=== PATIENT | female | born 1995 | race Caucasian/White ===

== ENCOUNTER 2017-11-15 10:48 | Emergency (ER) | payer MEDICAID, OTHER ==
[2017-11-15 10:48] VITALS: BMI 26.5
[2017-11-15 11:01] VITALS: RESP 16; TEMP 98.4; O2SAT 100
--- NOTE | 2017-11-15 11:32 | C.PDOC ---
History Of Present Illness 22 y/o female presents to the ER complaining of back pain for 2 weeks that worsens with standing. The patient reports being and therefore states she did not take any medication for pain due to being unaware of what was/wasn' t safe to take. She denies experiencing any abdominal pain, urinary symptoms, discharge, fever, numbness, vaginal bleeding. vaginal discharge. weakness or tingling. Time Seen by Provider: 11/15/17 11:24 Chief Complaint (Nursing): Back Pain History Per: Patient History/Exam Limitations: no limitations Onset/Duration Of Symptoms: Days Current Symptoms Are (Timing): Still Present Quality Of Discomfort: "Pain" Associated Symptoms: None Exacerbating Factor(s): Standing Recent travel outside of the [place]: No Past Medical History Reviewed: Historical Data, Nursing Documentation, Vital Signs Vital Signs: Last Vital Signs Temp 98.4 F 11/15/17 10:58 Pulse 75 11/15/17 11:36 Resp 16 11/15/17 10:58 BP 98/57 L 11/15/17 11:36 Pulse Ox 100 11/15/17 22:18 Surgical History: - [facility] Procedures EXTRACTION OF POC, LOW CERVICAL, OPEN APPROACH (03/26/15) Family History: States: Unknown Family Hx - Social History Hx Tobacco Use: No Hx Alcohol Use: No Hx Substance Use: No - Immunization History Hx Tetanus Toxoid Vaccination: No Hx Influenza Vaccination: No Hx Pneumococcal Vaccination: No Review Of Systems Constitutional: Negative for: Fever Gastrointestinal: Negative for: Abdominal Pain Genitourinary: Negative for: Dysuria, Frequency, Incontinence, Vaginal Discharge , Vaginal Bleeding Musculoskeletal: Positive for: Back Pain Neurological: Negative for: Weakness, Numbness, Other (tingling) Physical Exam - Physical Exam Appears: No Acute Distress Skin: No Rash Head: Atraumatic, Normacephalic Eye(s): bilateral: PERRL, EOMI Oral Mucosa: Moist Cardiovascular: Rhythm Irregular, No Murmur Respiratory: No Rales, No Rhonchi, No Wheezing, Other (clear to auscultation bilaterally) Back: No CVA Tenderness, Paraspinal Tenderness (bilateral lumbar), No Other ( midline tenderness) Extremity: No Pedal Edema, No Calf Tenderness Pulses: Left Dorsalis Pedis: Normal, Right Dorsalis Pedis: Normal Neurological/Psych: Oriented x3, Normal Speech, Normal Cognition, Normal Motor, Normal Sensation, Other (Alert, No gross focal deficit) Gait: Steady ED Course And Treatment O2 Sat by Pulse Oximetry: 100 (RA) Pulse Ox Interpretation: Normal Medical Decision Making Medical Decision Making: pt with low back pain. worse with standing x 2 weeks. pt 8 weeks preg, took no meds for pain due to . given tylenol. 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 Es seguro en el embarazo Pruebe compresas fras o tibias en el lucie dolorida. Intenta evitar levantar cosas pesadas. Jeanne un seguimiento con el Dr. Young. Regrese a la mae de emergencias para cualquier sntoma peor, dolor abdominal, sangrado vaginal o cualquier otra preocupacin. Please take Tylenol for pain as prescribed. It is safe in . Try cold or warm compresses to painful area. Try to avoid heavy lifting. Follow up with Dr Young. Return to ER for any worse symptms, abdominal pain, vaginal bleeding or any other concerns. 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 - Scribe Statement The provider has reviewed the documentation as recorded by the Scribe (Gloria Du) All medical record entries made by the Scribe were at my direction and personally dictated by me. I have reviewed the chart and agree that the record accurately reflects my personal performance of the history, physical exam, medical decision making, and the department course for this patient. I have also personally directed, reviewed, and agree with the discharge instructions and disposition.
[2017-11-15 11:38] VITALS: BP 98/57; PULSE 75
== END 2017-11-15 11:44 | disposition home or self-care (01) ==
LOC: C.ER 10:48
DX: M54.5 Low back pain (principal)

== ENCOUNTER 2017-12-11 20:06 | Emergency (ER) | payer MEDICAID, OTHER ==
[2017-12-11 20:07] VITALS: BMI 26.5
[2017-12-11 20:25] VITALS: BP 103/73; PULSE 77; RESP 18; TEMP 98.1; O2SAT 99
--- NOTE | 2017-12-11 20:36 | C.PDOC ---
History Of Present Illness Patient c/o foreign body sensation on the back of her tongue x 2 weeks. Patient sts she was looking with the mirror and found some growth there. Patient is 12 weeks . Time Seen by Provider: 12/11/17 20:28 Chief Complaint (Nursing): ENT Problem History Per: Patient Quality (Mouth/Throat): Other (FB sensation) Past Medical History Reviewed: Historical Data, Nursing Documentation, Vital Signs Vital Signs: Last Vital Signs Temp 98.1 F 12/11/17 20:23 Pulse 77 12/11/17 20:23 Resp 18 12/11/17 20:23 BP 103/73 12/11/17 20:23 Pulse Ox 99 12/11/17 20:35 - Medical History PMH: No Chronic Diseases Surgical History: - [facility] Procedures EXTRACTION OF POC, LOW CERVICAL, OPEN APPROACH (03/26/15) Family History: States: Unknown Family Hx - Social History Hx Tobacco Use: No Hx Alcohol Use: No Hx Substance Use: No - Immunization History Hx Tetanus Toxoid Vaccination: No Hx Influenza Vaccination: No Hx Pneumococcal Vaccination: No Review Of Systems Except As Marked, All Systems Reviewed And Found Negative. Physical Exam - Physical Exam Appears: Well, Non-toxic, No Acute Distress Skin: Normal Color, No Rash Head: Atraumatic, Normacephalic Eye(s): bilateral: Normal Inspection Ear(s): Bilateral: Normal Nose: Normal, No Discharge Oral Mucosa: Moist Tongue: Normal Appearing, No Swelling, No Lesions, Other (growth noticed in the back of tongue, no bleeding, no discharge, no erythema. ) Throat: No Erythema, No Exudate, No Drooling, Other (patent airway, uvula is midline) Neck: Normal ROM, Supple Neurological/Psych: Oriented x3, Normal Speech, Normal Cognition ED Course And Treatment O2 Sat by Pulse Oximetry: 99 Progress Note: Patient was referred to ENT specialist. Disposition - Disposition Referrals: Aubrey Young MD [Primary Care Provider] - Tam Marks MD [Staff Provider] - Disposition: HOME/ ROUTINE Disposition Time: 20:34 Condition: STABLE Additional Instructions: Follow up with ENT specialist within 1-2 days. Return to ED if feel worse. Forms: [employer] (Austrian) Print Language: YI - Clinical Impression Clinical Impression: Foreign body sensation in throat
== END 2017-12-11 20:40 | disposition home or self-care (01) ==
LOC: C.ER 20:06 → SUPCPDRO 20:06 → C.ER 20:40
DX: R09.89 Other specified symptoms and signs involving the circulatory and respiratory systems (principal)

== ENCOUNTER 2018-06-14 06:27 | Inpatient (IN) | payer OTHER ==
[2018-06-14 07:29] VITALS: BMI 25.4
[2018-06-14] MEDS ORDERED: Lactated Ringer's 1,000 ML IV ONE (07:30)
[2018-06-14] MEDS ORDERED: Lactated Ringer's 1,000 ML IV SCH (07:30)
[2018-06-14] MEDS ORDERED: cefOXitin IV 2 gm in Dextrose 2 GM/50 ML BAG IVPB ONE ×2 (07:34→08:07)
[2018-06-14] MEDS ORDERED: Sodium Citrate/Citric Acid 15 ml Sol PO ONE (07:45)
[2018-06-14 07:47] LABS: BASO % 0.2 % (0.0-2.0); EOS # 0.1 K/uL (0.0-0.7); EOS % 1.3 % (0.0-4.0); HEMOGLOBIN 11.5 g/dL (11.0-16.0); LYMPH # 1.6 K/uL (1.0-4.3); LYMPH % 19.6 % (20.0-40.0); MEAN CORPUSCULAR HEMOGLOBIN 30.5 pg (27.0-31.0); MEAN CORPUSCULAR HGB CONC 32.4 g/dL (33.0-37.0); MEAN PLATELET VOLUME 10.5 fL (7.2-11.7); MONO # 0.7 K/uL (0.0-0.8); MONO % 8.2 % (0.0-10.0); NEUT # 5.7 K/uL (1.8-7.0); NEUT % 70.7 % (50.0-75.0); NRBC % 0.1 % (0.0-2.0); RBC 3.77 Mil/uL (3.80-5.20); RED CELL DISTRIBUTION WIDTH 13.8 % (11.5-14.5); WHITE BLOOD COUNT 8.1 K/uL (4.8-10.8)
[2018-06-14 07:51] LABS: MEAN CELL VOLUME 94.1 fL (81.0-99.0)
[2018-06-14] MEDS ORDERED: Oxytocin 20 units in LR 2,000 ML IV ONE (08:06)
[2018-06-14] MEDS ORDERED: Sodium Citrate/Citric Acid 15 ml Sol ONE (08:07)
[2018-06-14 08:13] LABS: ALB/GLOB RATIO 1.2 (1.0-2.1); ALBUMIN 3.5 g/dL (3.5-5.0); ALT/SGPT 10 U/L (9-52); AST/SGOT 18 U/L (14-36); BLOOD UREA NITROGEN 17 mg/dL (7-17); CALCIUM 8.6 mg/dl (8.6-10.4); GFR NON-AFRICAN AMERICAN > 60
[2018-06-14 08:28] LABS: SQUAMOUS EPITHIAL 3 /hpf (0-5); URINE BACTERIA RARE (<OCC); URINE BILIRUBIN NEGATIVE (NEGATIVE); URINE BLOOD NEGATIVE (NEGATIVE); URINE CLARITY Hazy (Clear); URINE COLOR Yellow (YELLOW); URINE GLUCOSE (UA) NORMAL (Normal); URINE LEUKOCYTE ESTERASE 1+ Leu/uL (Negative); URINE PROTEIN 1+ mg/dL (NEGATIVE)
--- NOTE | 2018-06-14 08:30 | OBADHP ---
Datetime: 06/14/2018 07:38 Admit Comment, IP Provider: Patient is a 22 y.o. , LMP unsure, LUIS CARLOS 06/22/18, EGA 38w 6d by s peewee 12/25/17 at 14w 3d, previous C/S x 1, for elective repeat C.S (+) AFM; denies LOF, VB, Ctx care: [facility]; noted for RPR(+) - not treated. 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 Denies any other STI, abnormal Pap PMH: denies PSH: C/S NKDA Meds: PNV - QD Soc Hx: denies tobacco, illicit drug or EtOH use. Lives with her son. FOB involved - no cohabitati on Fam Hx: Mother alive 47. Father alive 45. MGM - breast CA survivor P.E.: as above. WD in NAD> Awake, alert, oriented to time, person and place. Pleasanat and coopera tive Accompanied by FOB Assessment: 22 y.o. P1, 38w 6d, previous C/S x 1 for elective repeat. 10/2017 RPR titre 1:2, TPA-AB S negative. Category 1 tracing. R/C discussed; no questions offered. Consents signed, witnessed, reji ed, and placed in chart. Patient last ate 2330 hours. Plan: 1) Admit 2) NPO 3) Admission labs 4) Continuous EFM 5) Higgins 6) Mefoxin document control associate to O.R. 7) Notify peds 8) Notify anesthesia 9) Patietn document control associate to O.R. Pelvic Type - PN: Adequate Extremities - PN: Normal Abdomen - PN: Normal Back - PN: Normal Breast - PN: Not Done Lungs - PN: Normal Heart - PN: Normal Thyroid - PN: Not Done Neurologic - PN: Normal HEENT - PN: Normal General - PN: Normal Presentation-Admit: Vertex FHR - Baseline A Provider: 145 Contraction Comments Provider: 3 minutes Comments, ACOG Physical Exam: Abdomen: Gravid. soft. Non tender. Fundal height 39cm All other systems reviewed and are negative Gestation - Est Wks by US: 38w 6d IP Hx Assessment: The History has been Reviewed and is Current IP Chief Complaint: Scheduled Section NICHD Variability Prov Fetus A: Moderate 6-25bpm NICHD Accel Fetus A IP Provider: [id number] FHR Category Provider Fetus A: Category I Dilatation, Provider: 2 Effacement, Provider: 30 Station, Provider: -3 Genitourinary Exam: Normal DTRs - PN: Not Done EGA AdmitDate IP: 38.6 IP Adm Impression: Term, intrauterine IP Admit Plan: Admit to unit; Initiate Section protocol
[2018-06-14] MEDS ORDERED: Morphine 1 mg/ml preservative-free Inj(Duramorph) ONE (08:36)
[2018-06-14 09:00] LABS: BARBITURATES, UR NEGATIVE (NEGATIVE); BENZODIAZEPINES, UR NEGATIVE (NEGATIVE); OPIATES, UR NEGATIVE (NEGATIVE); PHENCYCLIDINE, UR NEGATIVE (NEGATIVE)
--- NOTE | 2018-06-14 12:27 | OBDS ---
DELIVERY PERSONNEL Delivery Doctor: Jeyson Carrillo MD Scrub Nurse: Susan Pang Film Waxer: Bella Andrade RN Anesthesiologist: Jeannine Anguiano MD Resident: Aga Man MATERNAL INFORMATION Delivery Anesthesia: Spinal Medications in Delivery: interceed, pitocin 20 units in 1000 mls of LR Estimated Blood Loss (ml): 600 Maternal Complications: None RN Comments: uneventful delivery of 38.6 weeks IUP via repeat schedule c/s to a viable baby girl wit h apgars 9-9 Provider Comments: Uneventful repeat LTCS with delivery of live female infant, LIZ position. Grossly normal placenta; 3 vessel cord. Routine closure Hemostasis assured. Patient tolerated procedure well EBL 600 mL U.O. 200 mL IVFs 1,000 mL LABOR SUMMARY EDC: 06/22/2018 00:00 No. Babies in Womb: 1 Attempted: No Labor Anesthesia: Intrathecal LABOR INFORMATION Reason for Induction: Not Applicable Group B Beta Strep: Negative Steroids Given: None Reason Steroids Not Administered: Not Applicable MEMBRANES Membranes Rupture Method: Artificial Rupture of Membranes: 06/14/2018 09:09 Length of Rupture (hrs): 0.00 Amniotic Fluid Color: Clear Amniotic Fluid Amount: Moderate Amniotic Fluid Odor: Normal STAGES OF LABOR Stage 3 hrs: 0 Stage 3 min: 1 CSECTION DELIVERY Primary Indication: Repeat Elective Secondary Indication: Repeat Elective CSection Urgency: N/A CSection Incidence: Repeat Labor: N/A Elective: Elective BABY A INFORMATION Infant Delivery Date/Time: 06/14/2018 09:09 Method of Delivery: Born in Route : No : N/A Forceps: N/A Vacuum Extraction: N/A Shoulder Dystocia : No SHOULDER DYSTOCIA BABY A Infant Delivery Date/Time: 06/14/2018 09:09 PRESENTATION/POSITION BABY A Presentation: Cephalic Cephalic Presentation: Vertex Vertex Position: Left Occipital Anterior Breech Presentation: N/A PLACENTA INFORMATION BABY A Placenta Delivery Time : 06/14/2018 09:10 Placenta Method of Delivery: Manual Removal Placenta Status: Delivered SCORES BABY A Heart Rate 1 min: >100 bpm Resp Effort 1 min: Good Cry Reflex Irritability 1 min: Cough or Sneeze or Pulls Away Muscle Tone 1 min: Active Motion Color 1 min: Body [place], Extremities Blue Resuscitation Effort 1 min: N/A SCORE 1 MIN: 9 Heart Rate 5 min: >100 bpm Resp Effort 5 min: Good Cry Reflex Irritability 5 min: Cough or Sneeze or Pulls Away Muscle Tone 5 min: Active Motion Color 5 min: Body [place], Extremities Blue Resuscitation Effort 5 min: N/A SCORE 5 MIN: 9 INFANT INFORMATION BABY A Gestational Age at Delivery: 38.6 Gestational Status: Term Outcome : Liveborn Condition : Stable Sex: Female IDENTIFICATION/MEDS BABY A ID Band Number: [id number] ID Band Location: Left Leg; Left Arm Sensor Applied: Yes Sensor Number: [id number] Sensor Location : Cord Clamp WEIGHT/LENGTH BABY A Birthweight (gms): 2975 Weight (lb): 6 Weight (oz): 9 Length Inches: 19.75 Infant Length cms: 50.2 CORD INFORMATION BABY A No. Cord Vessels: 3 Nuchal Cord : N/A Nuchal Cord Other: n/a True Knot: n/a Cord pH Baby Arterial: n/a Infant Cord pH Baby Venous: n/a Cord Blood Taken: Yes Banking/Donate Info: n/a Suction: Mouth; Nose ASSESSMENT BABY A Infant Complications: None Physical Findings at Delivery: Within Normal Limits Respirations: Appears Normal Sampler Tester/ALS Called : No Infant Care By: dr Blank/EMMY Lewis Transferred To: Nursery
[2018-06-14] MEDS ORDERED: Oxycodone/Acetaminophen 5/325 mg Tab PO PRN (12:58)
[2018-06-14] MEDS: Simethicone 80 mg Chewtab PO SCH ×3 (14:26→22:25)
--- NOTE | 2018-06-14 15:14 | PCM.SURG1 ---
Surgeon's Initial Post Op Note - Surgeon's Notes Surgeon: Mai Carrillo MD Catalyst Operator Chief: Saulo Lane MD 2nd Ass't: Paco Man. MS-3 Type of Anesthesia: Spinal Anesthesia Administered By: Rafa Hansen MD Pre-Operative Diagnosis: 38 weeks 6 days, Previous section, Anemia Operative Findings: Live female infant, weight 6 lb 9 oz, LIZ position, 's 9/9. Normal uterus; normal ovaries and fallopian tubes, bilaterally. Post-Operative Diagnosis: Same Operation Performed: Repeat LTCS Specimen/Specimens Removed: Placenta Estimated Blood Loss: EBL {In ML}: 600 (U.O. 200 mL. IVFs 2,000 ml LR; 1st 1L with 40 units pitocin) Blood Products Given: N/A Drains Used: No Drains Post-Op Condition: Good Date of Surgery/Procedure: 06/14/18 Time of Surgery/Procedure: 09:30
[2018-06-14] MEDS: Oxycodone/Acetaminophen 5/325 mg Tab PO PRN (16:36)
[2018-06-14 16:57] LABS: RAPID PLASMA REAGIN REACTIVE (NONREACTIVE)
[2018-06-14 17:41] LABS: RAPID PLASMA REAGIN REACTIVE (NONREACTIVE)
[2018-06-15 08:17] LABS: HEMOGLOBIN 10.6 g/dL (11.0-16.0); MEAN CELL VOLUME 96.1 fL (81.0-99.0); MEAN CORPUSCULAR HEMOGLOBIN 31.3 pg (27.0-31.0); MEAN CORPUSCULAR HGB CONC 32.6 g/dL (33.0-37.0); MEAN PLATELET VOLUME 9.7 fL (7.2-11.7); RBC 3.39 Mil/uL (3.80-5.20); WHITE BLOOD COUNT 8.8 K/uL (4.8-10.8)
[2018-06-15] MEDS: Simethicone 80 mg Chewtab PO SCH ×4 (09:36→22:16)
[2018-06-15] MEDS: Prenatal Multivit/Folic Acid/Iron Tab PO SCH (09:36)
[2018-06-15] MEDS: Oxycodone/Acetaminophen 5/325 mg Tab PO PRN (17:38)
--- NOTE | 2018-06-15 19:44 | OBPPN ---
Datetime: 06/15/2018 14:00 PP Pain Prov: Within normal limits PP Nausea Prov: Denies PP Flatus Prov: Yes PP BM Prov: Yes PP Breasts Prov: Not Done PP Heart Prov: Normal PP Lungs Prov: Normal PP Abdomen/Uterus Prov: Normal PP Lochia Prov: Normal PP Vulva/Perineum Prov: Normal PP CVA Tenderness Prov: Normal PP Extremities Prov: Normal PP C/S Incision Prov: Normal PP Progress Prov: Normal PP Comments Phys Exam Prov: Fundus firm, below umbilicus and non-tender Incision clean, dry and intact PP Impression Prov: Normal progression PP Plan Prov: Continue present management PP Progress Note Prov: Pt seen and examined POD # 1 S/P Repeat C/S without complications PP H_H 10.6/32.6 + RPR on admission with titer 1:2 and FTA ordered but a send out test Pt states that she had the same result on her first PNC visit at the Clinic and she was referred t o Dr. Juan Antonio Ceballos who had more blood test done but she never returned to his office for f/up appoi ntment Dr. Ceballos consulted and message left in his voicemail Not Ambulating on hallways and states that feels her abdomen rambling. Encourage to increase po water intake and to ambulate on hallways Diet advanced and Hep lock IV Will adjust her pain medications for schedule instead of prn so able to move better Advance care IP PP Procedures: None Vital Signs Provider PP: Reviewed
[2018-06-15] MEDS ORDERED: Oxycodone/Acetaminophen 5/325 mg Tab PO SCH (19:45)
[2018-06-16] MEDS: Oxycodone/Acetaminophen 5/325 mg Tab PO SCH ×2 (04:29→20:01)
--- NOTE | 2018-06-16 09:06 | OBHP ---
Datetime: 06/14/2018 07:38 IP Adm Impression: Term, intrauterine IP Admit Plan: Admit to unit; Initiate Section protocol Admit Comment, IP Provider: Patient is a 22 y.o. , LMP unsure, LUIS CARLOS 06/22/18, EGA 38w 6d by s peewee 12/25/17 at 14w 3d, previous C/S x 1, for elective repeat C.S (+) AFM; denies LOF, VB, Ctx care: [facility]-; noted for RPR(+), TPA negative - not treated. 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 Denies any other STI, abnormal Pap PMH: denies PSH: C/S NKDA Meds: PNV - QD Soc Hx: denies tobacco, illicit drug or EtOH use. Lives with her son. FOB involved - no cohabitati on Fam Hx: Mother alive 47. Father alive 45. MGM - breast CA survivor P.E.: as above. WD in NAD> Awake, alert, oriented to time, person and place. Pleasant and cooperat heidi Accompanied by FOB Assessment: 22 y.o. P1, 38w 6d, previous C/S x 1 for elective repeat. 10/2017 RPR titre 1:2, TPA-AB S negative. Category 1 tracing. R/C discussed; no questions offered. Consents signed, witnessed, reji ed, and placed in chart. Patient last ate 2330 hours. Plan: 1) Admit 2) NPO 3) Admission labs 4) Continuous EFM 5) Higgins 6) Mefoxin information broker to O.R. 7) Notify peds 8) Notify anesthesia 9) Patietn information broker to O.R. Pelvic Type - PN: Adequate Extremities - PN: Normal Abdomen - PN: Normal Back - PN: Normal Breast - PN: Not Done Lungs - PN: Normal Heart - PN: Normal Thyroid - PN: Not Done Neurologic - PN: Normal HEENT - PN: Normal General - PN: Normal Presentation-Admit: Vertex FHR - Baseline A Provider: 145 Contraction Comments Provider: 3 minutes Comments, ACOG Physical Exam: Abdomen: Gravid. soft. Non tender. Fundal height 39cm All other systems reviewed and are negative Gestation - Est Wks by US: 38w 6d IP Hx Assessment: The History has been Reviewed and is Current EGA AdmitDate IP: 38.6 IP Indication for Induction: Not Applicable IP Chief Complaint: Scheduled Section NICHD Variability Prov Fetus A: Moderate 6-25bpm NICHD Accel Fetus A IP Provider: 15X15 FHR Category Provider Fetus A: Category I Dilatation, Provider: 2 Effacement, Provider: 30 Station, Provider: -3 Genitourinary Exam: Normal DTRs - PN: Not Done
[2018-06-16] MEDS: Prenatal Multivit/Folic Acid/Iron Tab PO SCH (09:07)
[2018-06-16] MEDS: Simethicone 80 mg Chewtab PO SCH ×4 (09:07→22:52)
--- NOTE | 2018-06-16 09:14 | OBPPN ---
Datetime: 06/16/2018 08:50 PP Pain Prov: Within normal limits PP Nausea Prov: Denies PP Flatus Prov: Yes PP BM Prov: No PP Breasts Prov: Abnormal PP Heart Prov: Normal PP Lungs Prov: Normal PP Abdomen/Uterus Prov: Normal PP Lochia Prov: Normal PP Vulva/Perineum Prov: Not Done PP CVA Tenderness Prov: Normal PP Extremities Prov: Normal PP C/S Incision Prov: Normal PP Progress Prov: Normal PP Comments Phys Exam Prov: Breast: left nipple sore and red Lungs: soft crackle right base; all other lung reilly are clear Abdomen: (+) ABS. Non distended. Soft. Fundus firm, mobile, minimal/ appropriately tender, 2 FB be low umbilicus. PP Impression Prov: Normal progression PP Plan Prov: Continue present management PP Progress Note Prov: Patient received in room 460 at approximately 0815 hours, coming out of bathr oom. Ambulating and voiding without difficulty. Denies headaches, lightheadedness, dizziness, nausea, vomiting. Reports abdominal pain is relieved with pain meds, pain scale 3/10 to 4/10. Concerned abou t incision. Desires to breastfeed - left nipple is sore. P.E.: as above. Thin, in NAD. Awake, alert, oriented to time, person and place. Pleasant and coope rative. FOB present, supportive and attentive. Also, serves as caddy packer - H/H trend: 11.5/35.4 -> 10.6/32.6. Rh(+) Assessment: POD#2, 22 y.o. P2, S/P elective repeat LTCS. Afebrile, vital signs stable. Returning G I and functions. Wound hematoma - stable. Mild post operative anemia - asymptomatic and hemodynami sapphire stable. RPR 1:2; FTA pending. Patient instructed on use of incentive spirometer. Encouraged to keep wound clean and dry. Patient may shower. Encouraged ot ambulate. Patient is clilncially stable. Plan: 1) Consult with Infectious Disease blood donor recruiter via amion 2) consult F/U 3) Encourage ambulation 4) Encourage incentive spirometer use 5) F/U FTA 6) Anticipate discharge home 06/17/18 Vital Signs Provider PP: Reviewed; Within Normal Limits
--- NOTE | 2018-06-16 09:27 | OBPPN ---
Datetime: 06/16/2018 09:23 PP Progress Note Prov: Addendum: Dr. Ceballos, Infectious Diseases responded: if FTA-ABS is negative, no need to treat. If it is positive, treat accordingly.
[2018-06-16 16:05] VITALS: O2SAT 98
--- NOTE | 2018-06-16 16:38 | CP.PCM.CON ---
History of Present Illness - History of Present Illness History of Present Illness: REFERRED FOR ID EVAL + RPR 1:2 POST FTA REPORTEDLY NEG PREPARTUM Review of Systems - Review of Systems All systems: reviewed and no additional remarkable complaints except Past Patient History - Infectious Disease Hx of Infectious Diseases: None - Past Social History Smoking Status: Never Smoked - PSYCHIATRIC Hx Substance Use: No - SURGICAL HISTORY Hx Surgeries: Yes Hx Section: Yes (x1) - ANESTHESIA Hx Anesthesia: Yes Meds Allergies/Adverse Reactions: Allergies Allergy/AdvReac Type Severity Reaction Status Date / Time No Known Allergies Allergy Verified 12/11/17 20:20 - Medications Medications: Current Medications Docusate Sodium (Colace) 100 mg PO BID [facility] Last Admin: 06/16/18 09:07 Dose: 100 mg Ibuprofen (Motrin Tab) 600 mg PO Q6H [facility] Last Admin: 06/16/18 09:30 Dose: 600 mg Oxycodone/Acetaminophen (Percocet 5/325 Mg Tab) 2 tab PO Q4H PRN PRN Reason: Pain, severe (8-10) Stop: 06/17/18 12:59 Last Admin: 06/15/18 17:38 Dose: 2 tab Oxycodone/Acetaminophen (Percocet 5/325 Mg Tab) 1 tab PO Q6H [facility] Stop: 06/19/18 01:31 Last Admin: 06/16/18 04:29 Dose: Not Given Multivit/Folic Acid/Iron () 1 tab PO DAILY [facility] Last Admin: 06/16/18 09:07 Dose: 1 tab Sennosides (Senokot Tab) 17.2 mg PO HS [facility] Last Admin: 06/15/18 22:16 Dose: 17.2 mg Simethicone (Mylicon Chew Tab) 80 mg PO QID [facility] Last Admin: 06/16/18 13:41 Dose: 80 mg Physical Exam - Constitutional Appears: Well - Head Exam Head Exam: ATRAUMATIC, NORMAL INSPECTION, NORMOCEPHALIC - Eye Exam Eye Exam: EOMI, Normal appearance, PERRL Pupil Exam: NORMAL ACCOMODATION, PERRL - ENT Exam ENT Exam: Mucous Membranes Moist, Normal Exam - Neck Exam Neck exam: Positive for: Normal Inspection - Respiratory Exam Respiratory Exam: Clear to Auscultation Bilateral, NORMAL BREATHING PATTERN - Cardiovascular Exam Cardiovascular Exam: REGULAR RHYTHM - GI/Abdominal Exam GI & Abdominal Exam: Normal Bowel Sounds, Soft. absent: Tenderness - Rectal Exam Rectal Exam: Deferred - Exam Exam: NORMAL INSPECTION - Extremities Exam Extremities exam: Positive for: normal inspection - Back Exam Back exam: NORMAL INSPECTION - Neurological Exam Neurological exam: Alert, CN II-XII Intact, Normal Gait, Oriented x3, Reflexes Normal - Psychiatric Exam Psychiatric exam: Normal Affect, Normal Mood - Skin Skin Exam: Dry, Intact, Normal Color, Warm Results - Vital Signs Recent Vital Signs: Last Vital Signs Temp 97.1 F L 06/16/18 16:00 Pulse 91 H 06/16/18 16:00 Resp 18 06/16/18 16:00 BP 101/71 06/16/18 16:00 Pulse Ox 98 06/16/18 16:00 - Labs Result Diagrams: 06/15/18 08:12 06/14/18 07:41 Assessment & Plan (1) Positive serology for syphilis Status: Acute Priority: High (2) Status: Acute - Assessment and Plan (Free Text) Assessment: likely false + RPR will need folllow up'no rx for now await FTA ABS
[2018-06-17] MEDS: Oxycodone/Acetaminophen 5/325 mg Tab PO SCH ×2 (01:25→09:50)
[2018-06-17] MEDS: Simethicone 80 mg Chewtab PO SCH (09:50)
[2018-06-17] MEDS: Prenatal Multivit/Folic Acid/Iron Tab PO SCH (09:51)
[2018-06-17 19:13] VITALS: BP 115/65; PULSE 88; RESP 18; TEMP 97.8
== END 2018-06-17 15:00 | disposition home or self-care (01) | DRG 370 ==
LOC: C.4D 06:27 → C.4M 18:15
PROVIDERS: ADMIT Obstetrics & Gynecology; ATTEND Obstetrics & Gynecology
PROC: 10D00Z1 Extraction of Products of Conception, Low, Open Approach (ICD-10-PCS; principal; 2018-06-14)
DX: O34.211 Maternal care for low transverse scar from previous cesarean delivery (principal); O99.02 Anemia complicating childbirth; Z3A.38 38 weeks gestation of pregnancy; Z37.0 Single live birth

== ENCOUNTER 2018-06-24 09:44 | Emergency (ER) | payer OTHER ==
[2018-06-24 09:51] VITALS: BP 114/80; PULSE 88; TEMP 98.9; O2SAT 98; BMI 24.6
--- NOTE | 2018-06-24 10:31 | C.PDOC ---
History Of Present Illness 22 y/o female, s/p on 06/14/18, presents to the ER for evaluation of C- Section incision line " opened and started to bleed since today morning". pt admits, john removed 3 days ago. Pt denies fever, chills, increase abdominal pain, nausea, vomiting, UTI sx. At present time, pt is comfortable, not in any apparent distress. Time Seen by Provider: 06/24/18 10:19 Chief Complaint (Nursing): Wound Check History Per: Patient History/Exam Limitations: no limitations Onset/Duration Of Symptoms: Hrs Current Symptoms Are (Timing): Still Present Severity: Moderate Past Medical History Reviewed: Historical Data, Nursing Documentation, Vital Signs Vital Signs: Last Vital Signs Temp 98.9 F 06/24/18 10:13 Pulse 88 06/24/18 10:13 Resp 17 06/24/18 10:13 BP 114/80 06/24/18 10:13 Pulse Ox 98 06/24/18 10:13 - Medical History PMH: Denies: Depression, Diabetes, HTN Surgical History: - [facility] Procedures EXTRACTION OF POC, LOW CERVICAL, OPEN APPROACH (06/14/18) Family History: States: No Known Family Hx - Social History Hx Tobacco Use: No Hx Alcohol Use: No Hx Substance Use: No - Immunization History Hx Tetanus Toxoid Vaccination: No Hx Influenza Vaccination: No Hx Pneumococcal Vaccination: No Review Of Systems Except As Marked, All Systems Reviewed And Found Negative. Constitutional: Negative for: Fever, Chills Gastrointestinal: Positive for: Other ( incision line bleeding). Negative for: Nausea, Vomiting, Abdominal Pain Physical Exam - Physical Exam Appears: Well, Non-toxic, No Acute Distress Skin: Normal Color, Warm, Dry Eye(s): bilateral: PERRL Neck: Supple Cardiovascular: Rhythm Regular Respiratory: No Decreased Breath Sounds, No Accessory Muscle Use, No Stridor, No Wheezing Gastrointestinal/Abdominal: Soft, Tenderness (diffuse suprapubic along incision), No Distention, No Guarding, No Rebound, Other ((+) small opening Left corner of incision with bloody discharge. Above and below insicion line trzace ecchymoses. Otehrwise, soft to palpation, no induration) Back: No CVA Tenderness Extremity: Normal ROM, No Deformity, No Swelling ED Course And Treatment O2 Sat by Pulse Oximetry: 98 (RA) Pulse Ox Interpretation: Normal - CT Scan/US Abdominal US Other Rad Studies (CT/US): Read By Radiologist, Radiology Report Reviewed CT/US Interpretation: Accession No. : [id number]. Patient Name / ID : FAINA ZARAGOZA / [id number]. Exam Date : 06/24/2018 11:17:18 ( Approved ). Study Comment : Sex / Age : F / 22Y. Creator : Silvana Ferrera MD. Dictator : Silvana Ferrera MD. Gravel Screener : Key Cutter : Silvana Ferrera MD. Approver2 : Report Date : 06/24/2018 12:30:14. My Comment : . Abdomen limited ultrasound. Indication: suprapubic hematoma s/p C- section. Comparison: None available. Findings: Limited submitted images in the region of interest at the level of scar, there is evidence of a large heterogeneous fluid collection measuring approximately 6.9 x 1.9 cm. Impression: Limited submitted images in the region of interest at the level of scar, there is evidence of a large heterogeneous fluid collection measuring approximately 6.9 x 1.9 cm. Correlate clinically. Progress Note: AT 10:30 AM consult called ith , OB-on-call. AT 12:10, pt was seen in ED by , hematoma was drained and packed. As per , F/U in 2 days for wound check. Request Rx: Augmentin, Ibuprofen. On re-eval, pt is afebrile, hemodynamicalys table. NOn-toxic. Abd: benign, (-) guaridng, (-) rebound. back: (-) CVA tenderness. Pt advised on course of ds. Advised to F/u with [facility] in 2 days for wound check or return to Ed. Pt understand, stable for discharge now. Disposition Counseled Patient/Family Regarding: Studies Performed, Diagnosis, Need For Followup, Rx Given - [facility] Disposition: HOME/ ROUTINE Disposition Time: 12:50 Condition: STABLE Additional Instructions: Ice, wound compression dressing LIght duty, avoid heavy lifting, etc Follow up with [facility] In 2 days for wound check/packing removal as need If unable to reach out to [facility], return to ED for wound check. 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 - Scribe Statement The provider has reviewed the documentation as recorded by the Lo Ramsay Provider Attestation All medical record entries made by the Chiquitaibe were at my direction and personally dictated by me. I have reviewed the chart and agree that the record accurately reflects my personal performance of the history, physical exam, medical decision making, and the department course for this patient. I have also personally directed, reviewed, and agree with the discharge instructions and disposition.
--- NOTE | 2018-06-24 12:33 | US ---
Abdomen limited ultrasound Indication: suprapubic hematoma s/p Comparison: None available Findings: Limited submitted images in the region of interest at the level of scar, there is evidence of a large heterogeneous fluid collection measuring approximately 6.9 x 1.9 cm. Impression: Limited submitted images in the region of interest at the level of scar, there is evidence of a large heterogeneous fluid collection measuring approximately 6.9 x 1.9 cm. Correlate clinically.
--- NOTE | 2018-06-24 13:55 | CP.PCM.CON ---
<Tremaine Hahn - Last Filed: 06/24/18 14:35> History of Present Illness - History of Present Illness History of Present Illness: Gynecology Consult note Patient is a 22 y/o female , s/p repeat LTCS on 06/14/18, who presents to the ED with complaints of bleeding and opening at the line at the left lateral edge since yesterday morning. Patient's john removed approximately 3- 4 days ago. Currently, patient denies any symptoms of fever, chills, nausea, vomiting, abdominal distention, urinary symptoms or skin color changes. Patient does admits to mild discomfort. Review of Systems - Constitutional Constitutional: absent: Chills, Fever, Headache, Night Sweats - Cardiovascular Cardiovascular: absent: Chest Pain, Palpitations - Gastrointestinal Gastrointestinal: absent: Abdominal Pain, Constipation, Diarrhea, Nausea, Vomiting - Genitourinary Genitourinary: absent: Difficulty Urinating, Urinary Frequency, Urinary Hesitance Past Patient History - Infectious Disease Hx of Infectious Diseases: None - Past Social History Smoking Status: Never Smoked - CARDIAC Hx Hypertension: No - PSYCHIATRIC Hx Depression: No Hx Substance Use: No - SURGICAL HISTORY Hx Surgeries: Yes Hx Section: Yes (X2) - ANESTHESIA Hx Anesthesia: Yes Hx Anesthesia Reactions: No Hx Malignant Hyperthermia: No Meds Home Medications: Home Medication List Medication Instructions Recorded Confirmed Type Amoxicillin/Clavulanate [Augmentin 1 tab PO BID #14 tab 06/24/18 Rx 875 MG-125 MG] Allergies/Adverse Reactions: Allergies Allergy/AdvReac Type Severity Reaction Status Date / Time No Known Allergies Allergy Verified 06/24/18 10:16 Physical Exam - Constitutional Appears: No Acute Distress - Head Exam Head Exam: ATRAUMATIC, NORMAL INSPECTION - Eye Exam Eye Exam: EOMI, Normal appearance - ENT Exam ENT Exam: Mucous Membranes Moist - GI/Abdominal Exam GI & Abdominal Exam: Soft. absent: Distended, Firm, Guarding Additional comments: Mild hematoma at the incision site Coagulated blood expressed out Small opening of the incision at the left lateral edge - Extremities Exam Extremities exam: Positive for: normal inspection. Negative for: calf tenderne ss, pedal edema - Neurological Exam Neurological exam: Alert, Oriented x3 - Psychiatric Exam Psychiatric exam: Normal Affect, Normal Mood - Skin Skin Exam: Normal Color Results - Vital Signs Recent Vital Signs: Last Vital Signs Temp 98.9 F 06/24/18 10:13 Pulse 88 06/24/18 10:13 Resp 17 06/24/18 10:13 BP 114/80 06/24/18 10:13 Pulse Ox 98 06/24/18 13:29 Assessment & Plan (1) S/P Assessment and Plan: Patient is a 22 y/o female , s/p repeat LTCS on 06/14/18, who presents to the ED with complaints of bleeding and opening at the line at the left lateral edge since yesterday morning. Abdomen US (06/24/18): Abdomen limited ultrasound. Indication: suprapubic hematoma s/p . Comparison: None available. Findings: Limited submitted images in the region of interest at the level of scar, there is evidence of a large heterogeneous fluid collection measuring approximately 6.9 x 1.9 cm. Impression: Limited submitted images in the region of interest at the level of scar, there is evidence of a large heterogeneous fluid collection measuring approximately 6.9 x 1.9 cm. Correlate clinically. 1. Coagulated blood expressed out 2. Wound cleaned with hydrogen peroxide 3. Iodoform packing at the left lateral edge opening of the incision 4. Recommendation for keflex for 10 days and motrin Q6H prn for pain control All plans and management discussed with Dr. Mederos Status: Acute <Cassie Mederos - Last Filed: 06/24/18 18:24> Results - Vital Signs Recent Vital Signs: Last Vital Signs Temp 98.9 F 06/24/18 13:50 Pulse 88 06/24/18 13:50 Resp 18 06/24/18 13:50 BP 114/80 06/24/18 13:50 Pulse Ox 98 06/24/18 13:50 Assessment & Plan - Assessment and Plan (Free Text) Assessment: A/P POD # 10 S/P Section D/C home on POD # 3 in S&S condition Incisional Hematoma visible and confirmed by US Mild Erythema through the entire incision S/P bleeding from Left end of the incision and about Cleansed with Hydrogen Peroxide Incision probed with a Q-tip and Fascia intact throughout About 20 mls of clotted, dark brown blood was expressed until no more came out Again cleaned with H2O2 Incision packed with Iodoform packing Covered with a vaginal pad and instructed to f/up with her doctor in 2-3 more days D/C home with Rx for Motrin and Keflex as requested from ER attending Advised to return if heavy bleeding, increase pain, fevers, greenish discharge etc Pt and her both verbalized understanding. - Date & Time Date: 06/24/18 Time: 18:20
[2018-06-24 14:21] VITALS: RESP 18
== END 2018-06-24 14:51 | disposition home or self-care (01) ==
LOC: C.ER 09:44
DX: L76.32 Postprocedural hematoma of skin and subcutaneous tissue following other procedure (principal); Y83.8 Other surgical procedures as the cause of abnormal reaction of the patient, or of later complication, without mention of misadventure at the time of the procedure

== ENCOUNTER 2018-06-26 07:17 | Emergency (ER) | payer OTHER ==
[2018-06-26 07:17] VITALS: BMI 24.6
[2018-06-26 07:27] VITALS: O2SAT 100
--- NOTE | 2018-06-26 08:20 | C.PDOC ---
History Of Present Illness 53 y/o female presents to the ER for wound infection which developed 2 days ago after patient had on 06/14/18. Patient was evaluated for same complaint in [facility] 2 days ago. At the time, packing was applied to the area. Patient denies having fever and chills. Time Seen by Provider: 06/26/18 07:34 Chief Complaint (Nursing): Wound Check History Per: Patient History/Exam Limitations: no limitations Onset/Duration Of Symptoms: Days Ago Current Symptoms Are (Timing): Still Present Severity: Moderate Past Medical History Reviewed: Historical Data, Nursing Documentation, Vital Signs Vital Signs: Last Vital Signs Temp 98.2 F 06/26/18 07:26 Pulse 70 06/26/18 07:26 Resp 18 06/26/18 07:26 BP 121/83 06/26/18 07:26 Pulse Ox 100 06/26/18 07:26 - Medical History PMH: Denies: Depression, Diabetes, HTN Surgical History: - [facility] Procedures EXTRACTION OF POC, LOW CERVICAL, OPEN APPROACH (06/14/18) Family History: States: No Known Family Hx - Social History Hx Tobacco Use: No Hx Alcohol Use: No Hx Substance Use: No - Immunization History Hx Tetanus Toxoid Vaccination: No Hx Influenza Vaccination: No Hx Pneumococcal Vaccination: No Review Of Systems Except As Marked, All Systems Reviewed And Found Negative. Constitutional: Negative for: Fever, Chills Gastrointestinal: Positive for: Other (wound infection to C section incision line). Negative for: Nausea, Vomiting, Abdominal Pain Physical Exam - Physical Exam Appears: Non-toxic, No Acute Distress Skin: Normal Color, Warm, Dry Head: Atraumatic, Normacephalic Eye(s): bilateral: Normal Inspection Gastrointestinal/Abdominal: Soft, No Tenderness, No Guarding, No Rebound, Other (packing in place on the left side of incision line, some serous drainage, no swelling, no erythema) Neurological/Psych: Oriented x3, Normal Speech ED Course And Treatment O2 Sat by Pulse Oximetry: 100 (RA) Pulse Ox Interpretation: Normal Progress Note: Case discussed with Dr Nieves who request follow up at clinic and packing removal. Wound healing no drainage, swelling or redness. Wound cleaned and packing removed, DSD applied Reassessment Condition: Improved - Physician Consult Information Physician Contacted: Missael Nieves Outcome Of Conversation: follow up at clinic Disposition Discussed With : Missael Nieves Doctor Will See Patient In The: Office Counseled Patient/Family Regarding: Need For Followup - Disposition Referrals: [facility] [Outside] Disposition: HOME/ ROUTINE Disposition Time: 10:00 Condition: GOOD Additional Instructions: Follow up with [facility] for further evaluation Continue current medications Change dressing as needed Instructions: Surgical Wound (DC) Forms: [employer] (Kittitian) Print Language: SLOVENIAN - POA Present On Arrival: None - Clinical Impression Clinical Impression: Wound - 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 - Scribe Statement The provider has reviewed the documentation as recorded by the Lo Ramsay Provider Attestation All medical record entries made by the Chiquitaibmaia were at my direction and personally dictated by me. I have reviewed the chart and agree that the record accurately reflects my personal performance of the history, physical exam, medical decision making, and the department course for this patient. I have also personally directed, reviewed, and agree with the discharge instructions and di sposition.
[2018-06-26 08:43] VITALS: BP 118/68; PULSE 73; RESP 20; TEMP 98.5
== END 2018-06-26 08:43 | disposition home or self-care (01) ==
LOC: C.ER 07:17
DX: T81.89XA Other complications of procedures, not elsewhere classified, initial encounter (principal); Y83.9 Surgical procedure, unspecified as the cause of abnormal reaction of the patient, or of later complication, without mention of misadventure at the time of the procedure

== ENCOUNTER 2018-06-29 08:56 | Emergency (ER) | payer OTHER ==
[2018-06-29 08:56] VITALS: BMI 24.6
[2018-06-29 09:28] VITALS: RESP 18; O2SAT 99
--- NOTE | 2018-06-29 09:37 | C.PDOC ---
History Of Present Illness 22 year old female presents to the ED for evaluation of new onset right wound dehiscence today associated with bloody discharge. Patient seen on 06/24 and 06/26 for left wound dehiscence, status post packing on 06/26 and removal 06/27 at [facility]. , s/p repeat LTCS on 06/24/2018. On Amoxil since 06/24. No fever, nausea, or vomiting. No increased pain to area compared to prior evaluation. States she has been mostly on bed rest. NEW ONSET R WOUND DEHISC TODAY. +BLOODY DC. SEEN 06/24 AND 06/26 FOR L CSECT WOUND DEHISC, S/P PACKING 06/26 AND REMOVAL 06/27 @ [facility]. , s/p repeat LTCS on 06/14/18. ON AMOXIL SINCE 06/24. NO FEVER, NV. NO INCR PAIN TO AREA COMPARED TO PRIOR EVAL. PS HAS BEEN MOSTLY BED REST. EXAM NONTOXIC SKIN +DESHISC WOUND L CSECT APPROX 2.5 CM W DARK BLOOD OUTPUT NO FOCAL FLUCT. +DEHISC WOUND R CSECT WOUND APPROX 1 CM W DARK BLOOD OUTPUT, NO FOCAL FLUCT. NO LOCAL CELLULITIS ABD NEG Time Seen by Provider: 06/29/18 09:28 Chief Complaint (Nursing): Wound Check History Per: Patient History/Exam Limitations: no limitations Onset/Duration Of Symptoms: Hrs Current Symptoms Are (Timing): Still Present Location Of Injury: Right: Abdomen Quality Of Symptoms: Draining (bloody discharge ) Additional History Per: Prior Records Past Medical History Reviewed: Historical Data, Nursing Documentation, Vital Signs Vital Signs: Last Vital Signs Temp 97.6 F 06/29/18 09:18 Pulse 65 06/29/18 09:18 Resp 18 06/29/18 09:18 BP 112/70 06/29/18 09:18 Pulse Ox 99 06/29/18 09:18 - Medical History PMH: No Chronic Diseases Denies: Depression, Diabetes, HTN Surgical History: - [facility] Procedures EXTRACTION OF POC, LOW CERVICAL, OPEN APPROACH (06/14/18) Family History: States: No Known Family Hx - Social History Hx Tobacco Use: No Hx Alcohol Use: No Hx Substance Use: No - Immunization History Hx Tetanus Toxoid Vaccination: No Hx Influenza Vaccination: No Hx Pneumococcal Vaccination: No Review Of Systems Constitutional: Negative for: Fever, Chills Gastrointestinal: Negative for: Nausea, Vomiting, Diarrhea Skin: Positive for: Other (wound dehiscence ) Physical Exam - Physical Exam Appears: Non-toxic, No Acute Distress Skin: Warm, Dry, Other (DESHISC WOUND L CSECT APPROX 2.5 CM W DARK BLOOD OUTPUT NO FOCAL FLUCT. +DEHISC WOUND R CSECT WOUND APPROX 1 CM W DARK BLOOD OUTPUT, NO FOCAL FLUCT. 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 [facility] - Data Reviewed Data Reviewed: Old records Disposition Counseled Patient/Family Regarding: Diagnosis, Need For Followup - Disposition Referrals: [facility] [Outside] Disposition: HOME/ ROUTINE Disposition Time: 10:46 Condition: IMPROVED Instructions: Wound Dehiscence (DC) Forms: [employer] (Beninese) Print Language: MAORI - Clinical Impression Clinical Impression: S/P , Non-healing surgical wound - Scribe Statement The provider has reviewed the documentation as recorded by the Scribmaia Garcia All medical record entries made by the Lo were at my direction and personally dictated by me. I have reviewed the chart and agree that the record accurately reflects my personal performance of the history, physical exam, medical decision making, and the department course for this patient. I have also personally directed, reviewed, and agree with the discharge instructions and disposition.
[2018-06-29 10:52] VITALS: BP 127/83; PULSE 57; TEMP 98.6
== END 2018-06-29 11:04 | disposition home or self-care (01) ==
LOC: C.ER 08:56
DX: T81.89XA Other complications of procedures, not elsewhere classified, initial encounter (principal); Z98.890 Other specified postprocedural states